=== PATIENT | male | born 1975 | race Caucasian/White ===

== ENCOUNTER 2016-09-03 19:45 | Emergency (ER) | payer SELFPAY ==
--- NOTE | 2016-09-03 20:05 | ER Document Report ---
ED Medical Screen (RME) - General Chief Complaint: Chest Pain Stated Complaint: CHEST PAIN Time Seen by Provider: 09/03/16 20:03 Notes: Patient presents with 30 minutes of central chest pain. It does radiate to the neck and both arms. Mild shortness of breath but no nausea or vomiting. Patient states he has a history of abnormal heart rhythms from low sodium in the past. He states he has been told that his sodium is low due to taken diuretics and drinking too much water. Patient states he did have palpitations several times with this pain before he arrived at the emergency department. TRAVEL OUTSIDE OF THE [place] IN LAST 30 DAYS: No - Related Data Allergies/Adverse Reactions: cephalexin monohydrate [From [address]] Allergy (Verified 09/03/16 19:46) Penicillins Allergy (Verified 09/03/16 19:46) Past Medical History - Past Medical History Cardiac Medical History: Reports: Hx Hypercholesterolemia, Hx Hypertension Pulmonary Medical History: Reports: Hx Asthma - Pediatric Neurological Medical History: Reports: Hx Migraine Renal/ Medical History: Denies: Hx Peritoneal Dialysis Psychiatric Medical History: Reports: Hx Anxiety Past Surgical History: Reports: Hx Appendectomy, Hx Orthopedic Surgery - left ankle - Immunizations Immunizations up to date: Yes Hx Diphtheria, Pertussis, Tetanus Vaccination: Yes Physical Exam - Vital signs Vitals: Temp Pulse Resp BP Pulse Ox 98.1 F 99 16 122/82 98 09/03/16 19:46 09/03/16 19:46 09/03/16 19:46 09/03/16 19:46 09/03/16 19:46 Course - Vital Signs Vital signs: Temp Pulse Resp BP Pulse Ox 98.1 F 99 16 122/82 98 09/03/16 19:46 09/03/16 19:46 09/03/16 19:46 09/03/16 19:46 09/03/16 19:46
[2016-09-03 20:21] LABS: ABSOLUTE EOSINOPHILS # (AUTO) 0.2 10^3/uL (0.0-0.6); ABSOLUTE LYMPHOCYTES (AUTO) 2.1 10^3/uL (0.5-4.7); ABSOLUTE MONOCYTES (AUTO) 0.6 10^3/uL (0.1-1.4); ABSOLUTE NEUT (AUTO) 3.9 10^3/uL (1.7-8.2); BASOPHILS % (AUTO) 0.3 % (0-2); EOSINOPHILS % (AUTO) 2.5 % (0-6); HEMATOCRIT 39.9 % (37.9-51.0); HGB HCT DIFFERENCE 2.1; LYMPHOCYTES % (AUTO) 31.2 % (13-45); MEAN CORPUSCULAR HEMOGLOBIN 32.8 pg (27.0-33.4); MEAN CORPUSCULAR VOLUME 94 fl (80-97); MONOCYTES % (AUTO) 9.1 % (3-13); RED BLOOD COUNT 4.27 10^6/uL (4.35-5.55); RED CELL DISTRIBUTION WIDTH 12.5 % (11.5-14.0); SEGMENTED NEUTROPHILS % (AUTO) 56.9 % (42-78); WHITE BLOOD COUNT 6.8 10^3/uL (4.0-10.5)
[2016-09-03 20:37] LABS: ALANINE AMINOTRANSFERASE 44 U/L (21-72); ALBUMIN 4.9 g/dL (3.5-5.0); ALKALINE PHOSPHATASE 43 U/L (38-126); ANION GAP 11 (5-19); ASPARTATE AMINO TRANSFERASE 28 U/L (17-59); BILIRUBIN,DIRECT 0.3 mg/dL (0.0-0.4); BILIRUBIN,TOTAL 0.8 mg/dL (0.2-1.3); BLOOD UREA NITROGEN 11 mg/dL (7-20); CALCIUM 9.8 mg/dL (8.4-10.2); CARBON DIOXIDE 28 mmol/L (22-30); CHLORIDE 94 mmol/L (98-107); CREATININE RESULT 0.85 mg/dL (0.52-1.25); GLUCOSE 122 mg/dL (75-110); POTASSIUM 4.2 mmol/L (3.6-5.0); SODIUM 133.4 mmol/L (137-145); TOTAL PROTEIN 7.6 g/dL (6.3-8.2)
--- NOTE | 2016-09-03 21:04 | ER Document Report ---
ED Cardiac - General Chief Complaint: Chest Pain Stated Complaint: CHEST PAIN Time Seen by Provider: 09/03/16 20:03 Mode of Arrival: Ambulatory TRAVEL OUTSIDE OF THE [place] IN LAST 30 DAYS: No - HPI Notes: 41-year-old male presents with a multitude of symptoms starting about 10-15 minutes prior to arriving to the emergency department. Initially described it as a pressing sensation above the suprasternal notch that was fairly rhythmic made it somewhat uncomfortable due to the pressure to his anterior neck but did not cause her speech difficulty. Did have some mild swelling difficulty. This seemed to resolve and he waited in the parking lot for a with friends while symptoms abated but recurred so he came and checked into the emergency department. He denies any neck pain otherwise including no posterior neck pain but noted he had mild chest pressure. He had a sensation that he felt like his heart would speed up slightly the beat harder and then would stop and restart. He had no syncope with this but did have one episode where he felt like he might pass out. He does have a history of migraines anxiety and chronic back pain for which he takes Percocet and Xanax but states this felt different than that. He has had multiple Holter monitors in the past, of which shows unclear etiology. Sounds something like PVCs by what he describes. He does have a history of hypertension but denies to me hypercholesterolemia, diabetes prior coronary artery disease. - Related Data Allergies/Adverse Reactions: cephalexin monohydrate [From [employer]ef[employer]] Allergy (Verified 09/03/16 19:46) Penicillins Allergy (Verified 09/03/16 19:46) Past Medical History - Social History Smoking Status: Former Smoker Chew tobacco use (# tins/day): No Frequency of alcohol use: None Drug Abuse: None Family History: Reviewed & Not Pertinent Patient has suicidal ideation: No Patient has homicidal ideation: No - Past Medical History Cardiac Medical History: Reports: Hx Hypercholesterolemia, Hx Hypertension Pulmonary Medical History: Reports: Hx Asthma - Pediatric Neurological Medical History: Reports: Hx Migraine Renal/ Medical History: Denies: Hx Peritoneal Dialysis Psychiatric Medical History: Reports: Hx Anxiety Past Surgical History: Reports: Hx Appendectomy, Hx Orthopedic Surgery - left ankle - Immunizations Immunizations up to date: Yes Hx Diphtheria, Pertussis, Tetanus Vaccination: Yes Review of Systems - Review of Systems -: Yes All other systems reviewed and negative Physical Exam - Vital signs Vitals: Temp Pulse Resp BP Pulse Ox 98.1 F 99 16 122/82 98 09/03/16 19:46 09/03/16 19:46 09/03/16 19:46 09/03/16 19:46 09/03/16 19:46 Interpretation: Normal - Notes Notes: Physical Exam: GENERAL: VS as per nursing doc. Well-appearing, well-nourished and in no acute distress. HEAD: Atraumatic, normocephalic. EYES: Pupils equal round and reactive to light, extraocular movements intact, sclera anicteric, no conjunctival injection or discharge. ENT: Nares patent, oropharynx clear without exudates. Moist mucous membranes. NECK: Normal range of motion, supple without lymphadenopathy. No JVD. No Carotid Bruits. Neck is nontender with no edema noted. No thyromegaly LUNGS: Breath sounds clear to auscultation bilaterally and equal. No wheezes rales or rhonchi. HEART: Normal S1S2. Regular rate and rhythm without murmurs. Equal peripheral pulses. PMI is normal ABDOMEN: Soft, non-tender. EXTREMITIES: Normal range of motion 20. No calf tenderness. Negative Homans. No edema. NEUROLOGICAL: Cranial nerves grossly intact. Normal speech. Normal sensory and motor exams. No gross cerebellar abnormalities. PSYCH: Normal mood, normal affect. SKIN: Warm, dry, no cyanosis, no splinter hemorrhages. Cap refill < 2 sec. Course - Re-evaluation Re-evalutation: 09/03/16 22:51 I discussed with patient findings. I observed some of his symptoms concurrent with PVCs on the monitor. He has had no persisting symptoms and did not even notice some of those. He thinks this is all related to stress with recent job change and no time off work. He is asking to leave and get outpatient follow- up if needed. He agrees to return if worsening or for other concern. - Vital Signs Vital signs: Temp Pulse Resp BP Pulse Ox 98.1 F 86 18 117/86 H 98 09/03/16 19:46 09/03/16 19:57 09/03/16 19:57 09/03/16 19:57 09/03/16 19:57 - Laboratory Result Diagrams: 09/03/16 20:10 09/03/16 20:10 Laboratory results interpreted by me: 09/03/16 09/03/16 20:10 20:10 RBC 4.27 L Sodium 133.4 L Chloride 94 L Glucose 122 H - EKG Interpretation by Me EKG shows normal: Sinus rhythm - Heart rate 95. There is no clear ischemia. Normal QRS. Patient normal. Rate: Normal Rhythm: NSR Heart block present: No: 1st Degree, Mobitz 1, Mobitz 2, CHB (3rd degree block) Discharge - Discharge Clinical Impression: Palpitations Condition: Good Disposition: HOME, SELF-CARE Additional Instructions: Contact your physician for follow-up evaluation/treatment. Return for worsening or concern.
[2016-09-03 23:14] VITALS: BP 115/79
--- NOTE | 2016-09-04 06:03 | EKG REPORT ---
SEVERITY:- NORMAL ECG - SINUS RHYTHM : Confirmed by: Piedad Daniel MD 04-Sep-2016 06:02:57
== END 2016-09-03 23:14 | disposition home or self-care (01) ==
LOC: ER 19:45
DX: R00.2 Palpitations (principal); R07.89 Other chest pain; I10 Essential (primary) hypertension; F41.9 Anxiety disorder, unspecified; M54.9 Dorsalgia, unspecified; G89.29 Other chronic pain; Z79.891 Long term (current) use of opiate analgesic; Z79.899 Other long term (current) drug therapy; Z88.1 Allergy status to other antibiotic agents; Z88.0 Allergy status to penicillin; Z87.891 Personal history of nicotine dependence
CPT/HCPCS: 36415; 80053; 84484; 85025; 93005; 93010; 99285

== ENCOUNTER 2018-04-07 00:42 | Emergency (ER) | payer SELFPAY ==
[2018-04-07 00:54] VITALS: BP 141/95
[2018-04-07] MEDS ORDERED: ACETAMINOPHEN 325 MG TABLET PO ONE (00:54)
[2018-04-07] MEDS ORDERED: IPRATROPIUM/ALBUTEROL 0.5-2.5 MG/3 ML AMPUL NEB ONE (01:34)
[2018-04-07] MEDS ORDERED: IBUPROFEN 800 MG TABLET PO ONE (01:36)
--- NOTE | 2018-04-07 01:37 | ER Document Report ---
ED Medical Screen (RME) - General Chief Complaint: Fever Stated Complaint: FEVER Time Seen by Provider: 04/07/18 01:32 Notes: 43-year-old male coming in today chief complaint of midsternal chest pain, bad cough, fever, bringing up ugly sputum. No vomiting or diarrhea. Denies smoking and drug use. I have treated and performed a rapid initial assessment of this patient. A comprehensive ED assessment and evaluation of the patient, analysis of test results and completion of medical decision making process will be conducted by additional ED providers. PHYSICAL EXAMINATION: GENERAL: Well-appearing, well-nourished and in no acute distress. A&Ox4. Answers questions appropriately. LUNGS: Breath sounds mildly diminished. No wheezes rales or rhonchi. HEART: Regular rate and rhythm without murmurs, rubs, gallops. ABDOMEN: Soft, nondistended abdomen. No guarding, no rebound. Normal bowel sounds present. Extremities: No cyanosis, clubbing, or edema b/l. NEUROLOGICAL: Normal speech, normal gait. PSYCH: Normal mood, normal affect. TRAVEL OUTSIDE OF THE [place] IN LAST 30 DAYS: No - Related Data Allergies/Adverse Reactions: cephalexin monohydrate [From Keflex] Allergy (Verified 09/03/16 19:46) Penicillins Allergy (Verified 09/03/16 19:46) Past Medical History - Social History Chew tobacco use (# tins/day): No Frequency of alcohol use: Occasional Drug Abuse: None - Past Medical History Cardiac Medical History: Reports: Hx Hypercholesterolemia, Hx Hypertension Pulmonary Medical History: Reports: Hx Asthma - Pediatric Neurological Medical History: Reports: Hx Migraine Renal/ Medical History: Denies: Hx Peritoneal Dialysis Psychiatric Medical History: Reports: Hx Anxiety Past Surgical History: Reports: Hx Appendectomy, Hx Orthopedic Surgery - left ankle - Immunizations Immunizations up to date: Yes Hx Diphtheria, Pertussis, Tetanus Vaccination: Yes Physical Exam - Vital signs Vitals: Temp Pulse Resp BP Pulse Ox 101.1 F H 110 H 20 141/95 H 98 04/07/18 00:53 04/07/18 00:53 04/07/18 00:53 04/07/18 00:53 04/07/18 00:53 Course - Vital Signs Vital signs: Temp Pulse Resp BP Pulse Ox 101.1 F H 110 H 20 141/95 H 98 04/07/18 00:53 04/07/18 00:53 04/07/18 00:53 04/07/18 00:53 04/07/18 00:53
[2018-04-07 03:12] LABS: ABSOLUTE EOSINOPHILS # (AUTO) 0.1 10^3/uL (0.0-0.6); ABSOLUTE LYMPHOCYTES (AUTO) 0.6 10^3/uL (0.5-4.7); ABSOLUTE MONOCYTES (AUTO) 0.8 10^3/uL (0.1-1.4); ABSOLUTE NEUT (AUTO) 5.7 10^3/uL (1.7-8.2); BASOPHILS % (AUTO) 0.2 % (0-2); EOSINOPHILS % (AUTO) 0.8 % (0-6); HEMOGLOBIN 12.9 g/dL (13.5-17.0); MEAN CORPUSCULAR HEMOGLOBIN 32.7 pg (27.0-33.4); MEAN CORPUSCULAR HGB CONC 35.8 g/dL (32.0-36.0); MEAN CORPUSCULAR VOLUME 92 fl (80-97); MONOCYTES % (AUTO) 11.3 % (3-13); PLATELET COUNT 206 10^3/uL (150-450); RED BLOOD COUNT 3.93 10^6/uL (4.35-5.55); SEGMENTED NEUTROPHILS % (AUTO) 79.7 % (42-78); TOTAL CELLS COUNTED % (AUTO) 100 %; WHITE BLOOD COUNT 7.1 10^3/uL (4.0-10.5)
[2018-04-07 03:32] LABS: ALANINE AMINOTRANSFERASE 20 U/L (21-72); ALBUMIN 4.7 g/dL (3.5-5.0); ALKALINE PHOSPHATASE 46 U/L (38-126); ANION GAP 14 (5-19); ASPARTATE AMINO TRANSFERASE 24 U/L (17-59); BILIRUBIN,DIRECT 0.3 mg/dL (0.0-0.4); BILIRUBIN,TOTAL 0.9 mg/dL (0.2-1.3); BLOOD UREA NITROGEN 10 mg/dL (7-20); CALCIUM 9.2 mg/dL (8.4-10.2); CARBON DIOXIDE 29 mmol/L (22-30); CHLORIDE 89 mmol/L (98-107); GLUCOSE 103 mg/dL (75-110); POTASSIUM 3.7 mmol/L (3.6-5.0); SODIUM 131.5 mmol/L (137-145)
--- NOTE | 2018-04-07 07:46 | EKG REPORT ---
SEVERITY:- OTHERWISE NORMAL ECG - SINUS TACHYCARDIA : Confirmed by: Rakesh Boone MD 07-Apr-2018 07:45:20
== END 2018-04-07 04:24 | disposition left against medical advice (07) ==
LOC: ER 00:42
DX: Z53.21 Procedure and treatment not carried out due to patient leaving prior to being seen by health care provider (principal); R50.9 Fever, unspecified; R05 Cough; R07.9 Chest pain, unspecified; I10 Essential (primary) hypertension; J45.909 Unspecified asthma, uncomplicated
CPT/HCPCS: 36415; 80053; 84484; 85025; 93005; 93010; 99281